=== PATIENT | male | born 1940 | race African-American/Black ===

== ENCOUNTER 2020-02-26 04:44 | Inpatient (IN) | payer SELFPAY ==
[~2020-02-26] VITALS: Ht 170.2 cm; Wt 74.8 kg
[2020-02-26 05:36] LABS: CHLORIDE 99 mEq/L (98-107)
[2020-02-26 05:41] LABS: BASOPHILS % 0.4 % (0.0-2.0); EOSINOPHILS % 0.1 % (0.0-5.0); HEMATOCRIT. 42.8 % (42.0-52.0); HEMOGLOBIN. 14.3 g/dL (14.0-18.0); LYMPHOCYTES % 7.9 % (20.0-50.0); MEAN PLATELET VOLUME 9.6 fl (7.4-10.4); NEUTROPHILS % 88.6 % (40.0-76.0); PLATELET 146 x1000/uL (130-400); RED BLOOD CELL COUNT 4.76 mill/uL (4.7-6.1); RED CELL DISTRIBUTION WIDTH 14.3 % (11.6-14.6)
[2020-02-26] MEDS ORDERED: SODIUM CHLORIDE 0.9% 1,000 ML IV ONE (06:33)
[2020-02-26] MEDS ORDERED: KETOROLAC 30MG/ML VIAL IV STA (06:33)
[2020-02-26] MEDS ORDERED: ONDANSETRON HCL 4MG/2ML INJ IV ONE (06:45)
[2020-02-26 07:33] LABS: CLARITY URINE CLEAR (CLEAR); COLOR URINE YELLOW (YELLOW); KETONES URINE 1+ (NEGATIVE); LEUKOCYTE ESTERASE URINE NEGATIVE (NEGATIVE); NITRITE URINE NEGATIVE (NEGATIVE); OCCULT BLOOD URINE NEGATIVE (NEGATIVE); PROTEIN URINE TRACE (NEGATIVE); SPECIFIC GRAVITY URINE 1.022 (1.005-1.030)
[2020-02-26] MEDS ORDERED: IPRATROPIUM/ALBUTEROL 0.5-3(2.5)MG/3ML NEB NEB PRN (10:00)
[2020-02-26] MEDS ORDERED: LORAZEPAM 2MG/ML CPJ IV PRN (10:00)
[2020-02-26] MEDS ORDERED: MORPHINE SULFATE 2 MG/ML CPJ (NOT FOR IM USE) IV PRN (10:00)
[2020-02-26] MEDS ORDERED: HYDROCODONE/ACETAMINOPHEN 5/325MG TABLET PO PRN (10:00)
[2020-02-26] MEDS ORDERED: NA PHOS,M-B/NA PHOS,DI-BA ENEMA 118ML PR PRN (10:00)
[2020-02-26] MEDS ORDERED: MAGNESIUM/ALUMINUM HYDROXIDE/SIMETHICONE 30ML UDC PO PRN (10:00)
[2020-02-26] MEDS ORDERED: GUAIFENESIN 200MG/10ML SUGAR FREE UDC PO PRN (10:00)
[2020-02-26] MEDS ORDERED: CLONIDINE 0.1MG TABLET PO PRN (10:00)
[2020-02-26 12:12] LABS: CHLORIDE 101 mEq/L (98-107)
[2020-02-26] MEDS: ENOXAPARIN 40MG/0.4ML SYR SUBCUT SCH (16:58)
[2020-02-26] MEDS: SODIUM CHLORIDE 0.45% 1,000 ML IV SCH (20:07)
[2020-02-26] MEDS: ONDANSETRON HCL 4MG/2ML INJ IV PRN (22:06)
[2020-02-26 22:10] VITALS: BP 129/73
[2020-02-26] MEDS ORDERED: PRAV20TA57 MT (23:28)
[2020-02-26] MEDS ORDERED: ASPI-1497 MT (23:28)
[2020-02-26] MEDS ORDERED: AMLO10TA80 MT (23:28)
[2020-02-26] MEDS ORDERED: BENA40TA9 MT (23:28)
[2020-02-26] MEDS ORDERED: DEXTROSE 50% WATER 50ML SYRINGE IV PRN (23:30)
[2020-02-27 04:00] VITALS: BP 123/74
[2020-02-27] MEDS: ONDANSETRON HCL 4MG/2ML INJ IV PRN (04:41)
[2020-02-27 06:53] LABS: BASOPHILS % 0.1 % (0.0-2.0); EOSINOPHILS % 0.1 % (0.0-5.0); HEMATOCRIT. 40.1 % (42.0-52.0); HEMOGLOBIN. 13.5 g/dL (14.0-18.0); LYMPHOCYTES % 14.4 % (20.0-50.0); MEAN CORPUSCULAR VOLUME 89.3 fL (80.0-94.0); MEAN PLATELET VOLUME 9.9 fl (7.4-10.4); MONOCYTES % 7.2 % (2.0-8.0); NEUTROPHILS % 78.2 % (40.0-76.0); PLATELET 146 x1000/uL (130-400); RED BLOOD CELL COUNT 4.49 mill/uL (4.7-6.1); RED CELL DISTRIBUTION WIDTH 14.2 % (11.6-14.6)
[2020-02-27] MEDS: BLOOD SUGAR DIAGNOSTIC STRIP TEST SCH ×4 (07:20→21:58)
[2020-02-27] MEDS: INSULIN LISPRO 100 UNITS/ML SUBCUT SCH ×4 (07:36→21:00)
[2020-02-27 07:59] LABS: CHLORIDE 103 mEq/L (98-107)
[2020-02-27 08:00] VITALS: BP 145/64
[2020-02-27 08:07] LABS: LDL CHOLESTEROL 81 mg/dL (5-100)
[2020-02-27 08:08] LABS: HDL CHOLESTEROL 70 mg/dL (40-59)
[2020-02-27] MEDS: SODIUM CHLORIDE 0.45% 1,000 ML IV SCH (09:29)
[2020-02-27] MEDS: ENOXAPARIN 40MG/0.4ML SYR SUBCUT SCH (09:29)
[2020-02-27 20:00] VITALS: BP 152/70
[2020-02-27] MEDS: ACETAMINOPHEN 325MG TABLET PO PRN (23:33)
[2020-02-28] VITALS: BP 146/86
[2020-02-28 04:00] VITALS: BP 158/78
[2020-02-28] MEDS: ONDANSETRON HCL 4MG/2ML INJ IV PRN ×2 (04:08→17:22)
[2020-02-28] MEDS: BLOOD SUGAR DIAGNOSTIC STRIP TEST SCH ×4 (06:37→20:39)
[2020-02-28] MEDS: INSULIN LISPRO 100 UNITS/ML SUBCUT SCH ×4 (07:50→20:49)
[2020-02-28 08:00] VITALS: BP 141/89
[2020-02-28] MEDS ORDERED: DIATR MEGLU/DIATRIZOATE SOLN 120ML ONE (08:16)
[2020-02-28] MEDS: ENOXAPARIN 40MG/0.4ML SYR SUBCUT SCH (10:00)
[2020-02-28 12:00] VITALS: BP 138/63
[2020-02-28 16:00] VITALS: BP 140/81
[2020-02-28] MEDS: DIPHENHYDRAMINE 50MG/ML VIAL IV PRN (17:11)
[2020-02-28] MEDS: SODIUM CHLORIDE 0.45% 1,000 ML IV SCH (17:18)
[2020-02-28 20:00] VITALS: BP 146/65
[2020-02-29] VITALS: BP 156/66
[2020-02-29] MEDS: ONDANSETRON HCL 4MG/2ML INJ IV PRN ×2 (01:49→23:13)
[2020-02-29 04:00] VITALS: BP_SYST 150; BP_SYST 156; BP_DIAS 57; BP_DIAS 66
[2020-02-29 07:10] LABS: BASOPHILS % 0.1 % (0.0-2.0); HEMATOCRIT. 40.4 % (42.0-52.0); HEMOGLOBIN. 13.4 g/dL (14.0-18.0); LYMPHOCYTES % 10.5 % (20.0-50.0); MEAN CORPUSCULAR HEMOGLOBIN 29.8 pg (28.0-32.0); MEAN PLATELET VOLUME 9.8 fl (7.4-10.4); MONOCYTES % 8.9 % (2.0-8.0); NEUTROPHILS % 80.5 % (40.0-76.0); PLATELET 140 x1000/uL (130-400); RED BLOOD CELL COUNT 4.49 mill/uL (4.7-6.1)
[2020-02-29] MEDS: BLOOD SUGAR DIAGNOSTIC STRIP TEST SCH ×4 (07:45→21:43)
[2020-02-29] MEDS: INSULIN LISPRO 100 UNITS/ML SUBCUT SCH ×4 (07:46→21:48)
[2020-02-29 07:57] LABS: CHLORIDE 105 mEq/L (98-107)
[2020-02-29 12:00] VITALS: BP 142/63
[2020-02-29] MEDS: ENOXAPARIN 40MG/0.4ML SYR SUBCUT SCH (14:44)
[2020-02-29] MEDS: SODIUM CHLORIDE 0.45% 1,000 ML IV SCH (14:45)
[2020-02-29 16:00] VITALS: BP 123/64
[2020-02-29 20:00] VITALS: BP 115/76
[2020-03-01] VITALS: BP 114/76
[2020-03-01 04:00] VITALS: BP 131/74
[2020-03-01] MEDS: ONDANSETRON HCL 4MG/2ML INJ IV PRN (05:54)
[2020-03-01] MEDS: BLOOD SUGAR DIAGNOSTIC STRIP TEST SCH ×4 (06:54→20:02)
[2020-03-01] MEDS: INSULIN LISPRO 100 UNITS/ML SUBCUT SCH ×4 (07:50→20:26)
[2020-03-01 08:00] VITALS: BP 146/81
[2020-03-01] MEDS: ENOXAPARIN 40MG/0.4ML SYR SUBCUT SCH ×2 (10:00→11:09)
[2020-03-01] MEDS: SODIUM CHLORIDE 0.45% 1,000 ML IV SCH (10:00)
[2020-03-01] MEDS ORDERED: BUPIVACAINE HCL 0.5% (5MG/ML) 50ML ONE (11:11)
[2020-03-01] MEDS ORDERED: NORMAL SALINE 0.9% 10 ML SYR ONE (11:14)
[2020-03-01] MEDS ORDERED: BACITRACIN 50,000 UNITS/VIAL ONE (11:14)
[2020-03-01] MEDS ORDERED: NEOSTIGMINE METHYLSULFATE 1MG/ML 10 ML VIAL ONE (11:38)
[2020-03-01] MEDS ORDERED: FENTANYL CITRATE/PF 50MCG/ML 2ML VIAL ONE (11:38)
[2020-03-01] MEDS ORDERED: GLYCOPYRROLATE 0.2 MG/ML 2ML VIAL ONE (11:39)
[2020-03-01] MEDS ORDERED: PROPOFOL 200MG/20ML VIAL IV ONE (11:39)
[2020-03-01] MEDS ORDERED: ROCURONIUM BROMIDE 10MG/ML VIAL 5ML IV ONE (11:39)
[2020-03-01] MEDS ORDERED: CEFAZOLIN SODIUM 1000MG/VIAL ONE (11:41)
[2020-03-01] MEDS ORDERED: LIDOCAINE HCL/PF 1% 10 MG/ML 5ML VIAL ONE (11:41)
[2020-03-01] MEDS ORDERED: SODIUM CHLORIDE 0.9% 10ML VIAL ONE (11:43)
[2020-03-01] MEDS ORDERED: EPHEDRINE SULFATE 50MG/ML VIAL ONE (11:59)
[2020-03-01] MEDS ORDERED: ONDANSETRON HCL 4MG/2ML INJ ONE (12:20)
[2020-03-01] MEDS ORDERED: METOCLOPRAMIDE HCL 10MG/2ML VIAL ONE (12:20)
[2020-03-01] MEDS ORDERED: ONDANSETRON HCL 4MG/2ML INJ IV PRN (13:00)
[2020-03-01] MEDS ORDERED: MORPHINE SULFATE 4 MG/ML CPJ (NOT FOR IM USE) IV PRN (13:00)
[2020-03-01] MEDS ORDERED: ACETAMINOPHEN 650MG SUPP PR PRN (13:00)
[2020-03-01] MEDS: FENTANYL CITRATE/PF 50MCG/ML 2ML VIAL IV PRN ×3 (13:17→15:12)
[2020-03-01] MEDS: BUPIVACAINE HCL 0.5% 125 ML in ON-Q PM012 DRUG DELIV DEVICE 1 EA IR SCH (13:41)
[2020-03-01 16:00] VITALS: BP 135/75
[2020-03-01 20:00] VITALS: BP 139/74
[2020-03-01] MEDS: FAMOTIDINE 20MG/2ML VIAL IV SCH (20:01)
[2020-03-02] VITALS: BP 153/79
[2020-03-02] MEDS: DEXT 5%/0.45% NACL KCL 20MEQ/L 1,000 ML IV SCH ×2 (04:27→14:40)
[2020-03-02] MEDS: MORPHINE SULFATE 2 MG/ML CPJ (NOT FOR IM USE) IV PRN ×3 (04:34→20:10)
[2020-03-02 05:35] VITALS: BP 126/73
[2020-03-02 06:18] LABS: HEMATOCRIT. 39.3 % (42.0-52.0); HEMOGLOBIN. 12.8 g/dL (14.0-18.0); MEAN CORPUSCULAR HEMOGLOBIN 29.9 pg (28.0-32.0); MEAN CORPUSCULAR VOLUME 91.7 fL (80.0-94.0); MEAN PLATELET VOLUME 8.8 fl (7.4-10.4); PLATELET 84 x1000/uL (130-400); RED BLOOD CELL COUNT 4.28 mill/uL (4.7-6.1); RED CELL DISTRIBUTION WIDTH 14.5 % (11.6-14.6)
[2020-03-02 06:23] LABS: CHLORIDE 115 mEq/L (98-107)
[2020-03-02] MEDS: BLOOD SUGAR DIAGNOSTIC STRIP TEST SCH ×4 (06:36→21:00)
[2020-03-02] MEDS: FAMOTIDINE 20MG/2ML VIAL IV SCH ×2 (09:00→20:44)
[2020-03-02] MEDS: INSULIN LISPRO 100 UNITS/ML SUBCUT SCH ×4 (10:27→21:00)
[2020-03-02] MEDS: BUPIVACAINE HCL 0.5% 125 ML in ON-Q PM012 DRUG DELIV DEVICE 1 EA IR SCH (14:00)
[2020-03-02 14:09] LABS: PLATELET ESTIMATE DECREASED
[2020-03-02 16:00] VITALS: BP 148/40
[2020-03-03] VITALS: BP 149/90
[2020-03-03] MEDS: DEXT 5%/0.45% NACL KCL 20MEQ/L 1,000 ML IV SCH ×3 (00:27→22:57)
[2020-03-03 04:00] VITALS: BP 132/68
[2020-03-03] MEDS: BLOOD SUGAR DIAGNOSTIC STRIP TEST SCH ×4 (07:20→21:14)
[2020-03-03] MEDS: MORPHINE SULFATE 2 MG/ML CPJ (NOT FOR IM USE) IV PRN (07:50)
[2020-03-03] MEDS: INSULIN LISPRO 100 UNITS/ML SUBCUT SCH ×4 (07:50→21:00)
[2020-03-03] MEDS: ENOXAPARIN 40MG/0.4ML SYR SUBCUT SCH (09:03)
[2020-03-03] MEDS: FAMOTIDINE 20MG/2ML VIAL IV SCH ×2 (09:03→21:19)
[2020-03-03 13:08] VITALS: BP 138/77
[2020-03-03] MEDS: BUPIVACAINE HCL 0.5% 125 ML in ON-Q PM012 DRUG DELIV DEVICE 1 EA IR SCH (14:00)
[2020-03-03 16:33] VITALS: BP 129/62
[2020-03-03 20:00] VITALS: BP 129/67
[2020-03-04] VITALS: BP 144/78
[2020-03-04] MEDS: MORPHINE SULFATE 2 MG/ML CPJ (NOT FOR IM USE) IV PRN ×2 (03:43→21:40)
[2020-03-04 04:00] VITALS: BP 142/78
[2020-03-04] MEDS: BLOOD SUGAR DIAGNOSTIC STRIP TEST SCH ×4 (07:03→21:00)
[2020-03-04 08:00] VITALS: BP 137/77
[2020-03-04] MEDS: FAMOTIDINE 20MG/2ML VIAL IV SCH ×2 (09:34→20:27)
[2020-03-04] MEDS: ENOXAPARIN 40MG/0.4ML SYR SUBCUT SCH (09:35)
[2020-03-04] MEDS: INSULIN LISPRO 100 UNITS/ML SUBCUT SCH ×4 (09:41→21:00)
[2020-03-04 12:00] VITALS: BP 142/80
[2020-03-04 16:00] VITALS: BP 135/84
[2020-03-04] MEDS: DEXT 5%/0.45% NACL KCL 20MEQ/L 1,000 ML IV SCH ×2 (16:30→22:26)
[2020-03-04 20:00] VITALS: BP 151/83
[2020-03-04] MEDS: DIPHENHYDRAMINE 50MG/ML VIAL IV PRN (20:27)
[2020-03-04] MEDS: ONDANSETRON HCL 4MG/2ML INJ IV PRN (21:40)
[2020-03-05] VITALS: BP 125/69
[2020-03-05 04:00] VITALS: BP 134/69
[2020-03-05] MEDS: INSULIN LISPRO 100 UNITS/ML SUBCUT SCH ×4 (06:27→21:00)
[2020-03-05] MEDS: BLOOD SUGAR DIAGNOSTIC STRIP TEST SCH ×4 (06:27→21:39)
[2020-03-05 07:38] LABS: BASOPHILS % 0.1 % (0.0-2.0); EOSINOPHILS % 0.6 % (0.0-5.0); HEMATOCRIT. 35.5 % (42.0-52.0); HEMOGLOBIN. 11.8 g/dL (14.0-18.0); LYMPHOCYTES % 8.9 % (20.0-50.0); MEAN CORPUSCULAR HEMOGLOBIN 29.9 pg (28.0-32.0); MEAN PLATELET VOLUME 10.4 fl (7.4-10.4); MONOCYTES % 6.8 % (2.0-8.0); NEUTROPHILS % 83.6 % (40.0-76.0); PLATELET 155 x1000/uL (130-400); RED BLOOD CELL COUNT 3.94 mill/uL (4.7-6.1); RED CELL DISTRIBUTION WIDTH 14.1 % (11.6-14.6)
[2020-03-05 07:41] LABS: CHLORIDE 111 mEq/L (98-107)
[2020-03-05 08:00] VITALS: BP 156/65
[2020-03-05] MEDS: FAMOTIDINE 20MG/2ML VIAL IV SCH ×2 (09:25→21:27)
[2020-03-05] MEDS: ENOXAPARIN 40MG/0.4ML SYR SUBCUT SCH (09:25)
[2020-03-05] MEDS: DEXT 5%/0.45% NACL KCL 20MEQ/L 1,000 ML IV SCH ×2 (12:44→21:39)
[2020-03-05 16:00] VITALS: BP 151/79
[2020-03-05 21:20] VITALS: BP 144/79
[2020-03-05] MEDS: ACETAMINOPHEN 325MG TABLET PO PRN (21:27)
[2020-03-05] MEDS: MORPHINE SULFATE 2 MG/ML CPJ (NOT FOR IM USE) IV PRN (21:33)
[2020-03-06] VITALS: BP 134/71
[2020-03-06 04:00] VITALS: BP 149/50
[2020-03-06] MEDS: BLOOD SUGAR DIAGNOSTIC STRIP TEST SCH ×4 (06:52→20:56)
[2020-03-06] MEDS: INSULIN LISPRO 100 UNITS/ML SUBCUT SCH ×4 (07:50→20:56)
[2020-03-06] MEDS: MORPHINE SULFATE 2 MG/ML CPJ (NOT FOR IM USE) IV PRN (07:59)
[2020-03-06] MEDS: DOCUSATE SODIUM 100MG CAPSULE PO PRN ×2 (07:59→17:14)
[2020-03-06 08:00] VITALS: BP 147/75
[2020-03-06] MEDS: DEXT 5%/0.45% NACL KCL 20MEQ/L 1,000 ML IV SCH (08:00)
[2020-03-06] MEDS: FAMOTIDINE 20MG/2ML VIAL IV SCH ×2 (08:04→20:57)
[2020-03-06 08:43] LABS: HEMOGLOBIN. 11.9 g/dL (14.0-18.0); MEAN CORPUSCULAR HEMOGLOBIN 29.8 pg (28.0-32.0); MEAN CORPUSCULAR VOLUME 90.3 fL (80.0-94.0); MEAN PLATELET VOLUME 9.7 fl (7.4-10.4); PLATELET 159 x1000/uL (130-400); RED BLOOD CELL COUNT 3.98 mill/uL (4.7-6.1); RED CELL DISTRIBUTION WIDTH 14.2 % (11.6-14.6)
[2020-03-06 08:52] LABS: CHLORIDE 112 mEq/L (98-107)
[2020-03-06 10:26] LABS: PLATELET ESTIMATE NORMAL
[2020-03-06] MEDS: ENOXAPARIN 40MG/0.4ML SYR SUBCUT SCH (11:25)
[2020-03-06 12:00] VITALS: BP 157/75
[2020-03-06] MEDS: ACETAMINOPHEN 325MG TABLET PO PRN (15:30)
[2020-03-06 16:00] VITALS: BP 122/68
[2020-03-06 20:00] VITALS: BP_SYST 124; BP_SYST 131; BP_DIAS 70; BP_DIAS 75
[2020-03-07] VITALS: BP 132/79
[2020-03-07 04:00] VITALS: BP 147/78
[2020-03-07] MEDS: DEXT 5%/0.45% NACL KCL 20MEQ/L 1,000 ML IV SCH ×2 (04:19→17:25)
[2020-03-07 05:22] LABS: BASOPHILS % 0.1 % (0.0-2.0); EOSINOPHILS % 0.4 % (0.0-5.0); HEMOGLOBIN. 12.6 g/dL (14.0-18.0); LYMPHOCYTES % 7.5 % (20.0-50.0); MEAN CORPUSCULAR HEMOGLOBIN 29.8 pg (28.0-32.0); MEAN CORPUSCULAR VOLUME 89.9 fL (80.0-94.0); MEAN PLATELET VOLUME 9.3 fl (7.4-10.4); MONOCYTES % 4.7 % (2.0-8.0); NEUTROPHILS % 87.3 % (40.0-76.0); PLATELET 160 x1000/uL (130-400); RED BLOOD CELL COUNT 4.23 mill/uL (4.7-6.1); RED CELL DISTRIBUTION WIDTH 13.9 % (11.6-14.6)
[2020-03-07 05:26] LABS: CHLORIDE 110 mEq/L (98-107)
[2020-03-07] MEDS: BLOOD SUGAR DIAGNOSTIC STRIP TEST SCH ×4 (07:25→21:15)
[2020-03-07] MEDS: INSULIN LISPRO 100 UNITS/ML SUBCUT SCH ×4 (07:26→21:00)
[2020-03-07 08:00] VITALS: BP 134/66
[2020-03-07] MEDS: FAMOTIDINE 20MG/2ML VIAL IV SCH ×2 (09:00→21:15)
[2020-03-07] MEDS: ENOXAPARIN 40MG/0.4ML SYR SUBCUT SCH (09:04)
[2020-03-07 12:00] VITALS: BP 139/69
[2020-03-07 16:00] VITALS: BP 137/67
[2020-03-07] MEDS: ACETAMINOPHEN 325MG TABLET PO PRN (18:01)
[2020-03-07 20:00] VITALS: BP 150/69
[2020-03-08] VITALS: BP 132/52
[2020-03-08] MEDS: DEXT 5%/0.45% NACL KCL 20MEQ/L 1,000 ML IV SCH ×2 (00:17→10:41)
[2020-03-08 04:00] VITALS: BP 139/57
[2020-03-08] MEDS: ACETAMINOPHEN 325MG TABLET PO PRN (06:04)
[2020-03-08 07:27] LABS: CHLORIDE 109 mEq/L (98-107)
[2020-03-08] MEDS: BLOOD SUGAR DIAGNOSTIC STRIP TEST SCH ×4 (07:27→21:00)
[2020-03-08] MEDS: INSULIN LISPRO 100 UNITS/ML SUBCUT SCH ×4 (07:50→21:00)
[2020-03-08 07:53] LABS: BASOPHILS % 0.3 % (0.0-2.0); EOSINOPHILS % 0.9 % (0.0-5.0); HEMATOCRIT. 33.1 % (42.0-52.0); LYMPHOCYTES % 10.8 % (20.0-50.0); MEAN CORPUSCULAR HEMOGLOBIN 29.6 pg (28.0-32.0); MEAN CORPUSCULAR VOLUME 88.9 fL (80.0-94.0); MEAN PLATELET VOLUME 10.2 fl (7.4-10.4); MONOCYTES % 5.7 % (2.0-8.0); NEUTROPHILS % 82.3 % (40.0-76.0); PLATELET 179 x1000/uL (130-400); RED BLOOD CELL COUNT 3.72 mill/uL (4.7-6.1); RED CELL DISTRIBUTION WIDTH 13.8 % (11.6-14.6)
[2020-03-08 08:00] VITALS: BP_SYST 158; BP_SYST 165; BP_DIAS 64; BP_DIAS 68
[2020-03-08] MEDS: FAMOTIDINE 20MG/2ML VIAL IV SCH ×2 (08:21→21:01)
[2020-03-08] MEDS: ENOXAPARIN 40MG/0.4ML SYR SUBCUT SCH (10:42)
[2020-03-08 12:00] VITALS: BP 155/78
[2020-03-08 16:00] VITALS: BP 136/76
[2020-03-08 20:00] VITALS: BP 149/60
[2020-03-08] MEDS: DIPHENHYDRAMINE 50MG/ML VIAL IV PRN (21:05)
[2020-03-09] VITALS: BP 145/67
[2020-03-09 04:00] VITALS: BP 137/77
[2020-03-09] MEDS: BLOOD SUGAR DIAGNOSTIC STRIP TEST SCH ×4 (06:59→21:12)
[2020-03-09] MEDS: INSULIN LISPRO 100 UNITS/ML SUBCUT SCH ×4 (06:59→21:00)
[2020-03-09 08:00] VITALS: BP_SYST 116; BP_SYST 140; BP_DIAS 60; BP_DIAS 72
[2020-03-09] MEDS: FAMOTIDINE 20MG/2ML VIAL IV SCH ×2 (09:27→21:13)
[2020-03-09] MEDS: ENOXAPARIN 40MG/0.4ML SYR SUBCUT SCH (09:27)
[2020-03-09] MEDS: DEXT 5%/0.45% NACL KCL 20MEQ/L 1,000 ML IV SCH ×2 (11:54→21:13)
[2020-03-09 12:00] VITALS: BP 139/61
[2020-03-09 16:00] VITALS: BP 125/92
[2020-03-09] MEDS: ACETAMINOPHEN 325MG TABLET PO PRN (19:37)
[2020-03-09 20:00] VITALS: BP 140/72
[2020-03-10] VITALS: BP 122/67
[2020-03-10] MEDS: DEXT 5%/0.45% NACL KCL 20MEQ/L 1,000 ML IV SCH ×3 (03:28→21:48)
[2020-03-10 04:00] VITALS: BP 138/60
[2020-03-10] MEDS: BLOOD SUGAR DIAGNOSTIC STRIP TEST SCH ×4 (06:45→20:47)
[2020-03-10] MEDS: INSULIN LISPRO 100 UNITS/ML SUBCUT SCH ×4 (06:54→20:47)
[2020-03-10 08:00] VITALS: BP 134/51
[2020-03-10] MEDS: FAMOTIDINE 20MG/2ML VIAL IV SCH ×2 (08:20→20:23)
[2020-03-10] MEDS: ACETAMINOPHEN 325MG TABLET PO PRN (08:21)
[2020-03-10] MEDS: ENOXAPARIN 40MG/0.4ML SYR SUBCUT SCH (10:05)
[2020-03-10 12:00] VITALS: BP 124/58
[2020-03-10 16:00] VITALS: BP 134/73
[2020-03-10 20:00] VITALS: BP 129/80
[2020-03-11] VITALS: BP 106/55
[2020-03-11 04:00] VITALS: BP 147/60
[2020-03-11] MEDS: BLOOD SUGAR DIAGNOSTIC STRIP TEST SCH (06:33)
[2020-03-11] MEDS: INSULIN LISPRO 100 UNITS/ML SUBCUT SCH (07:50)
[2020-03-11 08:00] VITALS: BP 156/48
[2020-03-11] MEDS: DEXT 5%/0.45% NACL KCL 20MEQ/L 1,000 ML IV SCH (08:23)
[2020-03-11] MEDS: FAMOTIDINE 20MG/2ML VIAL IV SCH (08:23)
[2020-03-11 09:03] VITALS: BP 108/61
[2020-03-15] MEDS ORDERED: CLOP75TA4 MT (14:50)
[2020-03-15] MEDS ORDERED: LEVO500T2 MT (14:50)
== END 2020-03-11 09:54 | disposition home or self-care (01) | DRG 230 ==
LOC: ER 04:44 → MICUSO 08:07 → 6EST 22:15
PROVIDERS: ADMIT Internal Medicine; ATTEND Internal Medicine
PROC: 0DT80ZZ Resection of Small Intestine, Open Approach (ICD-10-PCS; principal; 2020-03-01)
PROC: 0DN80ZZ Release Small Intestine, Open Approach (ICD-10-PCS; 2020-03-01)
DX: K56.50 Intestinal adhesions [bands], unspecified as to partial versus complete obstruction (principal); E46 Unspecified protein-calorie malnutrition; E11.9 Type 2 diabetes mellitus without complications; I10 Essential (primary) hypertension; M19.90 Unspecified osteoarthritis, unspecified site; E86.0 Dehydration; I25.10 Atherosclerotic heart disease of native coronary artery without angina pectoris; K56.7 Ileus, unspecified; Z68.25 Body mass index [BMI] 25.0-25.9, adult; Z79.899 Other long term (current) drug therapy; Z79.82 Long term (current) use of aspirin
CPT/HCPCS: 36415; 71045; 74018; 74176; 74250; 80048; 80053; 80061; 81003; 82962; 83036; 85025; 93005; 99285; J0690; J1200; J1650; J1815; J1885; J2060; J2270; J2405; J2704; J2710; J2765; J3010; J3490; J7030; Q9963

== ENCOUNTER 2020-04-27 15:54 | Inpatient (IN) | payer MEDICAID ==
[~2020-04-27] VITALS: Ht 175.3 cm; Wt 62.6 kg
[~2020-04-27 15:54] MED LIST: AMLO10TA80 MT; ASPI-1497 MT; BENA40TA9 MT; CLOP75TA4 MT; LEVO500T2 MT; PRAV20TA57 MT
[2020-04-27 17:51] LABS: BASOPHILS % 0.3 % (0.0-2.0); EOSINOPHILS % 0.3 % (0.0-5.0); LYMPHOCYTES % 24.1 % (20.0-50.0); MEAN CORPUSCULAR HEMOGLOBIN 29.9 pg (28.0-32.0); MEAN CORPUSCULAR VOLUME 92.4 fL (80.0-94.0); MEAN PLATELET VOLUME 8.8 fl (7.4-10.4); MONOCYTES % 5.4 % (2.0-8.0); NEUTROPHILS % 69.9 % (40.0-76.0); PLATELET 257 x1000/uL (130-400); RED BLOOD CELL COUNT 2.06 mill/uL (4.7-6.1); RED CELL DISTRIBUTION WIDTH 16.3 % (11.6-14.6)
[2020-04-27 17:52] LABS: CHLORIDE 105 mEq/L (98-107)
[2020-04-27 17:55] LABS: PROTHROMBIN TIME 10.8 sec (9.6-11.0)
[2020-04-27 18:08] LABS: HEMOGLOBIN. 6.2 g/dL (14.0-18.0)
[2020-04-27] MEDS ORDERED: SODIUM CHLORIDE 0.9% 1,000 ML IV ONE (19:00)
[2020-04-27 19:46] LABS: CLARITY URINE CLEAR (CLEAR); COLOR URINE YELLOW (YELLOW); KETONES URINE TRACE (NEGATIVE); LEUKOCYTE ESTERASE URINE NEGATIVE (NEGATIVE); NITRITE URINE NEGATIVE (NEGATIVE); OCCULT BLOOD URINE NEGATIVE (NEGATIVE); PROTEIN URINE NEGATIVE (NEGATIVE); SPECIFIC GRAVITY URINE 1.025 (1.005-1.030); UROBILINOGEN URINE 0.2 E.U./dL (0.2-1.0)
[2020-04-27] MEDS ORDERED: PANTOPRAZOLE 80 MG in SODIUM CHLORIDE 0.9% 100 ML IV SCH (20:00)
[2020-04-27] MEDS ORDERED: PANTOPRAZOLE SODIUM 40 MG/VIAL IV ONE (21:15)
[2020-04-27] MEDS ORDERED: ONDANSETRON HCL 4MG/2ML INJ IV PRN (22:00)
[2020-04-27] MEDS: DEXT 5%/0.45% NACL 1000ML 1,000 ML IV SCH (22:59)
[2020-04-27 23:35] VITALS: BP 125/53
[2020-04-28] VITALS (11 sets, daily range): BP systolic 95–131; BP diastolic 34–62
[2020-04-28] MEDS ORDERED: THIA50TA11 PO (02:55)
[2020-04-28] MEDS ORDERED: ENOX30DI4 SQ (02:55)
[2020-04-28] MEDS ORDERED: KEPP500 PO (02:55)
[2020-04-28] MEDS ORDERED: PROT40 PO (02:55)
[2020-04-28] MEDS ORDERED: DOCU250C69 PO (02:55)
[2020-04-28] MEDS ORDERED: MAGN400C PO (02:55)
[2020-04-28 03:40] LABS: BASOPHILS % 0.2 % (0.0-2.0); EOSINOPHILS % 0.5 % (0.0-5.0); LYMPHOCYTES % 22.2 % (20.0-50.0); MEAN CORPUSCULAR HEMOGLOBIN 31.4 pg (28.0-32.0); MEAN CORPUSCULAR VOLUME 91.7 fL (80.0-94.0); MEAN PLATELET VOLUME 7.9 fl (7.4-10.4); MONOCYTES % 5.8 % (2.0-8.0); NEUTROPHILS % 71.3 % (40.0-76.0); PLATELET 194 x1000/uL (130-400); RED BLOOD CELL COUNT 2.09 mill/uL (4.7-6.1); RED CELL DISTRIBUTION WIDTH 15.3 % (11.6-14.6)
[2020-04-28 03:45] LABS: HEMATOCRIT. 19.1 % (42.0-52.0); HEMOGLOBIN. 6.5 g/dL (14.0-18.0)
[2020-04-28 03:46] LABS: CHLORIDE 109 mEq/L (98-107)
[2020-04-28] MEDS: PANTOPRAZOLE SODIUM 40 MG/VIAL IV SCH ×3 (08:47→22:01)
[2020-04-28] MEDS: DEXT 5%/0.45% NACL 1000ML 1,000 ML IV SCH ×2 (15:02→22:10)
[2020-04-28 16:45] LABS: HEMATOCRIT 26.1 % (42.0-52.0); HEMOGLOBIN 8.9 g/dL (14.0-18.0); MEAN CORPUSCULAR HEMOGLOBIN 31.7 pg (28.0-32.0); MEAN CORPUSCULAR VOLUME 93.1 fL (80.0-94.0); PLATELET 131 x1000/uL (130-400); RED BLOOD CELL COUNT 2.81 mill/uL (4.7-6.1); RED CELL DISTRIBUTION WIDTH 15.5 % (11.6-14.6)
[2020-04-28] MEDS: ACETAMINOPHEN 325MG TABLET PO PRN (22:01)
[2020-04-28] MEDS ORDERED: IOHEXOL-300 100 ML BOTTLE ONE (23:50)
[2020-04-29] VITALS: BP 122/55
[2020-04-29 04:00] VITALS: BP 117/45
[2020-04-29 07:16] LABS: BASOPHILS % 0.7 % (0.0-2.0); HEMOGLOBIN. 8.5 g/dL (14.0-18.0); LYMPHOCYTES % 27.6 % (20.0-50.0); MEAN CORPUSCULAR HEMOGLOBIN 31.3 pg (28.0-32.0); MEAN CORPUSCULAR VOLUME 92.1 fL (80.0-94.0); MEAN PLATELET VOLUME 8.3 fl (7.4-10.4); MONOCYTES % 6.4 % (2.0-8.0); NEUTROPHILS % 63.3 % (40.0-76.0); PLATELET 206 x1000/uL (130-400); RED BLOOD CELL COUNT 2.72 mill/uL (4.7-6.1); RED CELL DISTRIBUTION WIDTH 15.6 % (11.6-14.6)
[2020-04-29 07:26] LABS: CHLORIDE 107 mEq/L (98-107)
[2020-04-29 08:00] VITALS: BP 117/61
[2020-04-29] MEDS: PANTOPRAZOLE SODIUM 40 MG/VIAL IV SCH ×2 (09:06→20:38)
[2020-04-29 12:00] VITALS: BP 130/51
[2020-04-29] MEDS: DEXT 5%/0.45% NACL 1000ML 1,000 ML IV SCH (15:38)
[2020-04-29 16:10] VITALS: BP 141/65
[2020-04-29 20:00] VITALS: BP 135/66
[2020-04-30] VITALS: BP 119/38
[2020-04-30] MEDS: DEXT 5%/0.45% NACL 1000ML 1,000 ML IV SCH ×2 (03:45→18:43)
[2020-04-30 04:00] VITALS: BP 134/38
[2020-04-30 06:18] LABS: BASOPHILS % 0.5 % (0.0-2.0); EOSINOPHILS % 1.6 % (0.0-5.0); HEMATOCRIT. 25.2 % (42.0-52.0); HEMOGLOBIN. 8.4 g/dL (14.0-18.0); LYMPHOCYTES % 23.6 % (20.0-50.0); MEAN PLATELET VOLUME 8.2 fl (7.4-10.4); NEUTROPHILS % 67.3 % (40.0-76.0); PLATELET 221 x1000/uL (130-400); RED BLOOD CELL COUNT 2.71 mill/uL (4.7-6.1); RED CELL DISTRIBUTION WIDTH 16.5 % (11.6-14.6)
[2020-04-30 07:05] LABS: CHLORIDE 109 mEq/L (98-107)
[2020-04-30 08:00] VITALS: BP 158/64
[2020-04-30] MEDS: PANTOPRAZOLE SODIUM 40 MG/VIAL IV SCH ×2 (09:05→21:16)
[2020-04-30 12:00] VITALS: BP 135/56
[2020-04-30] MEDS ORDERED: POTASSIUM CHLORIDE 20MEQ TABLET SR PO SCH (12:00)
[2020-04-30 16:00] VITALS: BP 139/55
[2020-04-30 20:00] VITALS: BP 137/57
[2020-05-01] VITALS: BP 120/50
[2020-05-01 04:00] VITALS: BP 141/51
[2020-05-01] MEDS: DEXT 5%/0.45% NACL 1000ML 1,000 ML IV SCH ×2 (06:17→18:29)
[2020-05-01 07:29] LABS: CHLORIDE 109 mEq/L (98-107)
[2020-05-01 07:39] LABS: BASOPHILS % 0.4 % (0.0-2.0); EOSINOPHILS % 1.5 % (0.0-5.0); HEMATOCRIT. 25.8 % (42.0-52.0); HEMOGLOBIN. 8.7 g/dL (14.0-18.0); LYMPHOCYTES % 21.8 % (20.0-50.0); MEAN CORPUSCULAR HEMOGLOBIN 31.2 pg (28.0-32.0); NEUTROPHILS % 70.3 % (40.0-76.0); PLATELET 217 x1000/uL (130-400); RED BLOOD CELL COUNT 2.78 mill/uL (4.7-6.1); RED CELL DISTRIBUTION WIDTH 17.6 % (11.6-14.6)
[2020-05-01 08:00] VITALS: BP 131/44
[2020-05-01] MEDS: PANTOPRAZOLE SODIUM 40 MG/VIAL IV SCH ×2 (09:08→20:46)
[2020-05-01 12:00] VITALS: BP 128/48
[2020-05-01 16:00] VITALS: BP 144/39
[2020-05-01] MEDS ORDERED: SORBITOL 70% SOLN 30ML PO NR ×2 (16:00→20:00)
[2020-05-01 20:00] VITALS: BP 129/75
[2020-05-02] VITALS: BP 147/67
[2020-05-02 04:00] VITALS: BP 133/47
[2020-05-02 08:00] VITALS: BP 144/52
[2020-05-02 08:33] LABS: BASOPHILS % 0.2 % (0.0-2.0); EOSINOPHILS % 0.9 % (0.0-5.0); HEMATOCRIT. 27.8 % (42.0-52.0); HEMOGLOBIN. 9.4 g/dL (14.0-18.0); LYMPHOCYTES % 26.2 % (20.0-50.0); MEAN CORPUSCULAR HEMOGLOBIN 31.6 pg (28.0-32.0); MEAN CORPUSCULAR VOLUME 93.7 fL (80.0-94.0); MEAN PLATELET VOLUME 7.6 fl (7.4-10.4); MONOCYTES % 6.6 % (2.0-8.0); NEUTROPHILS % 66.1 % (40.0-76.0); PLATELET 242 x1000/uL (130-400); RED BLOOD CELL COUNT 2.97 mill/uL (4.7-6.1); RED CELL DISTRIBUTION WIDTH 18.2 % (11.6-14.6)
[2020-05-02 08:40] LABS: CHLORIDE 114 mEq/L (98-107)
[2020-05-02] MEDS: PANTOPRAZOLE SODIUM 40 MG/VIAL IV SCH ×2 (09:00→22:30)
[2020-05-02] MEDS: DEXT 5%/0.45% NACL 1000ML 1,000 ML IV SCH (09:00)
[2020-05-02 12:00] VITALS: BP 139/73
[2020-05-02 16:00] VITALS: BP 125/62
[2020-05-02] MEDS ORDERED: SIMETHICONE 40 MG/0.6 ML 30ML ONE (16:07)
[2020-05-02] MEDS ORDERED: MIDAZOLAM HCL 5 MG/5 ML VIAL ONE (16:08)
[2020-05-02] MEDS ORDERED: FENTANYL CITRATE/PF 50MCG/ML 2ML VIAL ONE (16:08)
[2020-05-02] MEDS ORDERED: MIDAZOLAM HCL 5 MG/5 ML VIAL IV PRN (16:08)
[2020-05-02] MEDS ORDERED: MIDAZOLAM HCL 2 MG/2 ML VIAL IV PRN (16:22)
[2020-05-02] MEDS: ACETAMINOPHEN 325MG TABLET PO PRN (18:31)
[2020-05-02 20:00] VITALS: BP 131/47
[2020-05-02 21:27] LABS: HEMOGLOBIN 8.9 g/dL (14.0-18.0); MEAN CORPUSCULAR HEMOGLOBIN 31.7 pg (28.0-32.0); MEAN CORPUSCULAR VOLUME 96.3 fL (80.0-94.0); PLATELET 206 x1000/uL (130-400); RED CELL DISTRIBUTION WIDTH 18.7 % (11.6-14.6)
[2020-05-02 21:37] LABS: CHLORIDE 112 mEq/L (98-107)
[2020-05-02] MEDS: SUCRALFATE 1G TABLET PO SCH (22:30)
[2020-05-03] VITALS: BP 140/59
[2020-05-03] MEDS: DEXT 5%/0.45% NACL 1000ML 1,000 ML IV SCH (03:54)
[2020-05-03 04:00] VITALS: BP 134/51
[2020-05-03] MEDS: SUCRALFATE 1G TABLET PO SCH ×2 (06:23→12:59)
[2020-05-03 06:52] LABS: BASOPHILS % 0.5 % (0.0-2.0); EOSINOPHILS % 1.3 % (0.0-5.0); HEMATOCRIT. 25.9 % (42.0-52.0); HEMOGLOBIN. 8.7 g/dL (14.0-18.0); LYMPHOCYTES % 21.5 % (20.0-50.0); MEAN CORPUSCULAR HEMOGLOBIN 31.4 pg (28.0-32.0); MEAN PLATELET VOLUME 8.1 fl (7.4-10.4); MONOCYTES % 6.7 % (2.0-8.0); PLATELET 203 x1000/uL (130-400); RED BLOOD CELL COUNT 2.75 mill/uL (4.7-6.1); RED CELL DISTRIBUTION WIDTH 18.1 % (11.6-14.6)
[2020-05-03 07:07] LABS: CHLORIDE 112 mEq/L (98-107)
[2020-05-03 08:00] VITALS: BP 122/44
[2020-05-03] MEDS ORDERED: KCL 20MEQ/100ML PREMIX 100 ML IV NR (08:30)
[2020-05-03] MEDS: PANTOPRAZOLE SODIUM 40 MG/VIAL IV SCH (08:46)
[2020-05-03] MEDS ORDERED: KCL 20MEQ/100ML PREMIX 100 ML IV ONE (09:30)
[2020-05-03 12:00] VITALS: BP 127/42
[2020-05-03 15:04] VITALS: BP 127/42
== END 2020-05-03 16:10 | DRG 241 ==
LOC: ER 15:54 → 5WST 21:14 → EDBEDREQTM 21:20 → EDBEDREQ 21:20 → ENRESERV 22:05
PROVIDERS: ADMIT Internal Medicine; ATTEND Internal Medicine
PROC: 30233N1 Transfusion of Nonautologous Red Blood Cells into Peripheral Vein, Percutaneous Approach (ICD-10-PCS; principal; 2020-04-27)
PROC: 0DBN8ZZ Excision of Sigmoid Colon, Via Natural or Artificial Opening Endoscopic (ICD-10-PCS; 2020-05-02)
PROC: 0DB68ZX Excision of Stomach, Via Natural or Artificial Opening Endoscopic, Diagnostic (ICD-10-PCS; 2020-05-02)
PROC: 0DBP8ZZ Excision of Rectum, Via Natural or Artificial Opening Endoscopic (ICD-10-PCS; 2020-05-02)
DX: K29.61 Other gastritis with bleeding (principal); K26.4 Chronic or unspecified duodenal ulcer with hemorrhage; E43 Unspecified severe protein-calorie malnutrition; K57.31 Diverticulosis of large intestine without perforation or abscess with bleeding; E78.5 Hyperlipidemia, unspecified; I10 Essential (primary) hypertension; I25.10 Atherosclerotic heart disease of native coronary artery without angina pectoris; I44.1 Atrioventricular block, second degree; I73.9 Peripheral vascular disease, unspecified; K59.00 Constipation, unspecified; K76.0 Fatty (change of) liver, not elsewhere classified; M17.12 Unilateral primary osteoarthritis, left knee; N28.1 Cyst of kidney, acquired; I71.4 Abdominal aortic aneurysm, without rupture; E87.6 Hypokalemia; M17.0 Bilateral primary osteoarthritis of knee; D50.0 Iron deficiency anemia secondary to blood loss (chronic); K44.9 Diaphragmatic hernia without obstruction or gangrene; K63.5 Polyp of colon; L60.2 Onychogryphosis; Z20.828 Contact with and (suspected) exposure to other viral communicable diseases; S90.01XA Contusion of right ankle, initial encounter; N40.0 Benign prostatic hyperplasia without lower urinary tract symptoms; K08.109 Complete loss of teeth, unspecified cause, unspecified class; K64.8 Other hemorrhoids; Z79.899 Other long term (current) drug therapy; Z79.02 Long term (current) use of antithrombotics/antiplatelets; X58.XXXA Exposure to other specified factors, initial encounter; Y93.89 Activity, other specified; Y92.89 Other specified places as the place of occurrence of the external cause; Y99.8 Other external cause status; Z68.20 Body mass index [BMI] 20.0-20.9, adult
CPT/HCPCS: 36415; 71045; 74178; 76700; 80048; 80053; 81003; 82270; 83735; 84443; 84484; 85025; 85027; 86850; 86900; 86920; 87635; 88305; 88313; 93005; 93306; 93923; 96374; 97110; 97162; 97530; 99152; 99285; C9113; J2250; J3010; J3480; J7030; J7050; P9016; Q9967; G0500

== ENCOUNTER 2020-05-16 18:08 | Inpatient (IN) | payer MEDICAID ==
[~2020-05-16] VITALS: Ht 172.7 cm; Wt 61.7 kg
[~2020-05-16 18:08] MED LIST changes: +DOCU250C69 PO; +ENOX30DI4 SQ; +KEPP500 PO; +MAGN400C PO; +PROT40 PO; +THIA50TA11 PO
[2020-05-16 18:50] LABS: BASOPHILS % 1.2 % (0.0-2.0); EOSINOPHILS % 0.6 % (0.0-5.0); LYMPHOCYTES % 31.7 % (20.0-50.0); MEAN CORPUSCULAR HEMOGLOBIN 30.4 pg (28.0-32.0); MEAN CORPUSCULAR VOLUME 92.9 fL (80.0-94.0); MEAN PLATELET VOLUME 7.8 fl (7.4-10.4); MONOCYTES % 5.4 % (2.0-8.0); NEUTROPHILS % 61.1 % (40.0-76.0); PLATELET 338 x1000/uL (130-400); RED BLOOD CELL COUNT 1.98 mill/uL (4.7-6.1); RED CELL DISTRIBUTION WIDTH 17.1 % (11.6-14.6)
[2020-05-16 18:52] LABS: HEMATOCRIT. 18.4 % (42.0-52.0)
[2020-05-16 18:58] LABS: CHLORIDE 103 mEq/L (98-107)
[2020-05-16 18:59] LABS: PROTHROMBIN TIME 10.4 sec (9.6-11.0)
[2020-05-16] MEDS ORDERED: PANTOPRAZOLE 80 MG in SODIUM CHLORIDE 0.9% 100 ML IV SCH ×4 (19:00)
[2020-05-16] MEDS ORDERED: PANTOPRAZOLE SODIUM 40 MG/VIAL IV ONE (19:00)
[2020-05-16 19:10] LABS: CLARITY URINE CLOUDY (CLEAR); COLOR URINE YELLOW (YELLOW); KETONES URINE NEGATIVE (NEGATIVE); LEUKOCYTE ESTERASE URINE NEGATIVE (NEGATIVE); NITRITE URINE NEGATIVE (NEGATIVE); OCCULT BLOOD URINE NEGATIVE (NEGATIVE); PROTEIN URINE NEGATIVE (NEGATIVE); SPECIFIC GRAVITY URINE 1.016 (1.005-1.030)
[2020-05-16] MEDS ORDERED: CEFTRIAXONE 1 G PREMIX 50 ML IV SCH (20:15)
[2020-05-17] VITALS (21 sets, daily range): BP systolic 101–144; BP diastolic 32–79
[2020-05-17] MEDS ORDERED: ACETAMINOPHEN 325MG TABLET PO PRN (00:45)
[2020-05-17] MEDS ORDERED: OMEP20CA14 PO (01:41)
[2020-05-17] MEDS ORDERED: TOPUD PO (01:41)
[2020-05-17] MEDS ORDERED: HYDR-3281 PO (01:41)
[2020-05-17] MEDS ORDERED: CEFTRIAXONE 1,000 MG in DEXTROSE 5% WATER 50 ML IV SCH (02:00)
[2020-05-17] MEDS: PANTOPRAZOLE SODIUM 40 MG/VIAL IV SCH ×2 (06:38→18:37)
[2020-05-17] MEDS: DEXT 5%/0.45% NACL KCL 20MEQ/L 1,000 ML IV SCH ×2 (09:06→18:00)
[2020-05-17 09:27] LABS: BASOPHILS % 0.3 % (0.0-2.0); EOSINOPHILS % 0.8 % (0.0-5.0); HEMATOCRIT. 24.9 % (42.0-52.0); HEMOGLOBIN. 8.5 g/dL (14.0-18.0); LYMPHOCYTES % 29.9 % (20.0-50.0); MEAN CORPUSCULAR HEMOGLOBIN 30.8 pg (28.0-32.0); MEAN CORPUSCULAR VOLUME 90.8 fL (80.0-94.0); MEAN PLATELET VOLUME 7.5 fl (7.4-10.4); MONOCYTES % 4.2 % (2.0-8.0); NEUTROPHILS % 64.8 % (40.0-76.0); PLATELET 286 x1000/uL (130-400); RED BLOOD CELL COUNT 2.75 mill/uL (4.7-6.1); RED CELL DISTRIBUTION WIDTH 16.6 % (11.6-14.6)
[2020-05-17 09:36] LABS: CHLORIDE 106 mEq/L (98-107)
[2020-05-17] MEDS: SUCRALFATE 1G TABLET PO SCH ×3 (11:19→21:48)
[2020-05-17 17:46] LABS: HEMATOCRIT 21.4 % (42.0-52.0)
[2020-05-17 17:48] LABS: HEMOGLOBIN 6.8 g/dL (14.0-18.0)
[2020-05-17 17:57] LABS: TOTAL IRON BINDING CAPACITY 166 ug/dL (250-450)
[2020-05-17] MEDS: TAMSULOSIN HCL 0.4MG SR CAPSULE PO SCH (21:49)
[2020-05-18] VITALS (16 sets, daily range): BP systolic 107–141; BP diastolic 53–80
[2020-05-18 01:10] LABS: HEMOGLOBIN 8.9 g/dL (14.0-18.0)
[2020-05-18] MEDS: DEXT 5%/0.45% NACL KCL 20MEQ/L 1,000 ML IV SCH ×3 (04:25→17:44)
[2020-05-18] MEDS: PANTOPRAZOLE SODIUM 40 MG/VIAL IV SCH ×2 (06:06→17:44)
[2020-05-18] MEDS: SUCRALFATE 1G TABLET PO SCH ×4 (06:07→21:32)
[2020-05-18 06:27] LABS: BASOPHILS % 0.5 % (0.0-2.0); EOSINOPHILS % 1.6 % (0.0-5.0); HEMATOCRIT. 30.9 % (42.0-52.0); HEMOGLOBIN. 10.5 g/dL (14.0-18.0); LYMPHOCYTES % 17.4 % (20.0-50.0); MEAN CORPUSCULAR HEMOGLOBIN 30.2 pg (28.0-32.0); MEAN PLATELET VOLUME 7.7 fl (7.4-10.4); MONOCYTES % 5.5 % (2.0-8.0); PLATELET 279 x1000/uL (130-400); RED BLOOD CELL COUNT 3.47 mill/uL (4.7-6.1); RED CELL DISTRIBUTION WIDTH 17.4 % (11.6-14.6)
[2020-05-18 06:33] LABS: CHLORIDE 107 mEq/L (98-107)
[2020-05-18] MEDS ORDERED: FENTANYL CITRATE/PF 50MCG/ML 2ML VIAL ONE (11:04)
[2020-05-18] MEDS ORDERED: MIDAZOLAM HCL 5 MG/5 ML VIAL ONE (11:04)
[2020-05-18] MEDS ORDERED: MIDAZOLAM HCL 5 MG/5 ML VIAL IV PRN (11:04)
[2020-05-18] MEDS: TAMSULOSIN HCL 0.4MG SR CAPSULE PO SCH (21:33)
[2020-05-19] VITALS (10 sets, daily range): BP systolic 104–143; BP diastolic 42–76
[2020-05-19] MEDS: DEXT 5%/0.45% NACL KCL 20MEQ/L 1,000 ML IV SCH ×2 (02:05→09:42)
[2020-05-19] MEDS: SUCRALFATE 1G TABLET PO SCH ×3 (06:03→16:50)
[2020-05-19] MEDS: PANTOPRAZOLE SODIUM 40 MG/VIAL IV SCH (06:03)
[2020-05-19 07:07] LABS: BASOPHILS % 0.3 % (0.0-2.0); EOSINOPHILS % 1.9 % (0.0-5.0); HEMATOCRIT. 29.2 % (42.0-52.0); HEMOGLOBIN. 9.8 g/dL (14.0-18.0); LYMPHOCYTES % 18.6 % (20.0-50.0); MEAN CORPUSCULAR HEMOGLOBIN 30.2 pg (28.0-32.0); MEAN CORPUSCULAR VOLUME 89.9 fL (80.0-94.0); MEAN PLATELET VOLUME 7.7 fl (7.4-10.4); MONOCYTES % 6.4 % (2.0-8.0); NEUTROPHILS % 72.8 % (40.0-76.0); PLATELET 324 x1000/uL (130-400); RED BLOOD CELL COUNT 3.24 mill/uL (4.7-6.1); RED CELL DISTRIBUTION WIDTH 17.7 % (11.6-14.6)
[2020-05-19 07:22] LABS: CHLORIDE 108 mEq/L (98-107)
== END 2020-05-19 17:45 | DRG 663 ==
LOC: ER 18:12 → 3WST 20:22 → EDBEDREQTM 20:24 → EDBEDREQ 20:24 → ENRESERV 21:05
PROVIDERS: ADMIT Internal Medicine; ATTEND Internal Medicine
PROC: 30233N1 Transfusion of Nonautologous Red Blood Cells into Peripheral Vein, Percutaneous Approach (ICD-10-PCS; principal; 2020-05-16)
PROC: 0DJ68ZZ Inspection of Stomach, Via Natural or Artificial Opening Endoscopic (ICD-10-PCS; 2020-05-18)
DX: D62 Acute posthemorrhagic anemia (principal); K26.4 Chronic or unspecified duodenal ulcer with hemorrhage; K29.60 Other gastritis without bleeding; K44.9 Diaphragmatic hernia without obstruction or gangrene; K29.81 Duodenitis with bleeding; R00.1 Bradycardia, unspecified; I10 Essential (primary) hypertension; E46 Unspecified protein-calorie malnutrition; E78.5 Hyperlipidemia, unspecified; I25.10 Atherosclerotic heart disease of native coronary artery without angina pectoris; I44.1 Atrioventricular block, second degree; I71.2 Thoracic aortic aneurysm, without rupture; K57.30 Diverticulosis of large intestine without perforation or abscess without bleeding; M19.90 Unspecified osteoarthritis, unspecified site; N40.0 Benign prostatic hyperplasia without lower urinary tract symptoms; I73.9 Peripheral vascular disease, unspecified; K59.00 Constipation, unspecified; L89.516 Pressure-induced deep tissue damage of right ankle; K64.8 Other hemorrhoids; L89.156 Pressure-induced deep tissue damage of sacral region; I44.0 Atrioventricular block, first degree; Z79.82 Long term (current) use of aspirin; Z79.2 Long term (current) use of antibiotics; Z79.899 Other long term (current) drug therapy; Z68.20 Body mass index [BMI] 20.0-20.9, adult
CPT/HCPCS: 36415; 71045; 74176; 80048; 80053; 81003; 82040; 82270; 82728; 83540; 83550; 84134; 84484; 85014; 85018; 85025; 86850; 86900; 86920; 93005; 99291; C9113; J0696; J2250; J3010; J7050; J7060; P9016

== ENCOUNTER 2022-03-18 17:35 | Inpatient (IN) | payer MEDICAID ==
[~2022-03-18] VITALS: Ht 175.3 cm; Wt 78.0 kg
[~2022-03-18 17:35] MED LIST changes: -BENA40TA9 MT; +BENA40TA91 MT; +CLOP-31 MT; -CLOP75TA4 MT; +HYDR-4346 PO; +OMEP20CA14 PO; -THIA50TA11 PO; +THIA50TA12 PO; +TOPUD PO
[2022-03-18] MEDS ORDERED: FAMOTIDINE 20MG/2ML VIAL IV STA (18:15)
[2022-03-18] MEDS ORDERED: SODIUM CHLORIDE 0.9% 500 ML IV ONE (18:15)
[2022-03-18 18:27] LABS: BASOPHILS % 0.3 % (0.0-2.0); EOSINOPHILS % 0.1 % (0.0-5.0); HEMATOCRIT. 42.5 % (42.0-52.0); LYMPHOCYTES % 9.9 % (20.0-50.0); MEAN CORPUSCULAR HEMOGLOBIN 28.6 pg (28.0-32.0); MEAN CORPUSCULAR VOLUME 86.9 fL (80.0-94.0); MONOCYTES % 2.7 % (2.0-8.0); PLATELET 159 x1000/uL (130-400); RED BLOOD CELL COUNT 4.88 mill/uL (4.7-6.1); RED CELL DISTRIBUTION WIDTH 15.2 % (11.6-14.6)
[2022-03-18] MEDS ORDERED: ONDANSETRON HCL 4MG/2ML INJ IV ONE (18:30)
[2022-03-18 18:37] LABS: CHLORIDE 103 mEq/L (98-107)
[2022-03-18] MEDS ORDERED: FAMOTIDINE 20MG/2ML VIAL IV NR (20:17)
[2022-03-18] MEDS ORDERED: ONDANSETRON HCL 4MG/2ML INJ IV NR (20:17)
[2022-03-18 21:15] LABS: CLARITY URINE CLEAR (CLEAR); COLOR URINE YELLOW (YELLOW); KETONES URINE TRACE (NEGATIVE); LEUKOCYTE ESTERASE URINE 1+ (NEGATIVE); NITRITE URINE NEGATIVE (NEGATIVE); OCCULT BLOOD URINE NEGATIVE (NEGATIVE); PROTEIN URINE NEGATIVE (NEGATIVE); SPECIFIC GRAVITY URINE 1.051 (1.005-1.030); UROBILINOGEN URINE 0.2 E.U./dL (0.2-1.0)
[2022-03-18 22:00] VITALS: BP 141/72
[2022-03-18] MEDS ORDERED: IOHEXOL-300 100 ML BOTTLE ONE (22:01)
[2022-03-19] VITALS: BP 130/52
[2022-03-19] MEDS ORDERED: ACETAMINOPHEN 325MG TABLET PO SCH (00:30)
[2022-03-19] MEDS ORDERED: CLONIDINE 0.1MG TABLET PO PRN (00:45)
[2022-03-19] MEDS ORDERED: ONDANSETRON HCL 4MG/2ML INJ IV PRN (00:45)
[2022-03-19] MEDS ORDERED: HYDRALAZINE 20MG/ML VIAL IV PRN (00:45)
[2022-03-19 04:00] VITALS: BP 122/57
[2022-03-19 06:36] LABS: BASOPHILS % 0.4 % (0.0-2.0); EOSINOPHILS % 0.6 % (0.0-5.0); HEMATOCRIT. 38.5 % (42.0-52.0); HEMOGLOBIN. 12.7 g/dL (14.0-18.0); LYMPHOCYTES % 22.6 % (20.0-50.0); MEAN CORPUSCULAR HEMOGLOBIN 28.7 pg (28.0-32.0); MEAN CORPUSCULAR VOLUME 87.1 fL (80.0-94.0); MONOCYTES % 7.1 % (2.0-8.0); NEUTROPHILS % 69.3 % (40.0-76.0); RED BLOOD CELL COUNT 4.42 mill/uL (4.7-6.1); RED CELL DISTRIBUTION WIDTH 15.3 % (11.6-14.6)
[2022-03-19 06:43] LABS: CHLORIDE 108 mEq/L (98-107)
[2022-03-19 07:11] LABS: HDL CHOLESTEROL 50 mg/dL (40-59); LDL CHOLESTEROL 73 mg/dL (5-100)
[2022-03-19 08:55] LABS: PLATELET 124 x1000/uL (130-400)
[2022-03-19] MEDS: CLOPIDOGREL 75MG TABLET PO SCH (09:39)
[2022-03-19] MEDS: ASPIRIN 81MG EC TABLET PO SCH (09:39)
[2022-03-19] MEDS: AMLODIPINE 10MG TABLET PO SCH (09:39)
[2022-03-19] MEDS: DOCUSATE SODIUM 250MG CAPSULE PO SCH (09:39)
[2022-03-19] MEDS: THIAMINE HCL 100MG TABLET PO SCH (09:39)
[2022-03-19] MEDS: MAGNESIUM OXIDE 400MG TABLET PO SCH (09:39)
[2022-03-19] MEDS: PANTOPRAZOLE 40MG DR TABLET PO SCH (09:39)
[2022-03-19] MEDS: BENAZEPRIL 10MG TABLET PO SCH (09:40)
[2022-03-19 12:00] VITALS: BP 118/52
[2022-03-19] MEDS ORDERED: SORBITOL 70% SOLN 30ML PO NR (12:15)
[2022-03-19] MEDS ORDERED: ZOLPIDEM TARTRATE 5MG TABLET PO ONE (12:45)
[2022-03-19] MEDS ORDERED: ZOLPIDEM TARTRATE 5MG TABLET PO PRN (12:45)
[2022-03-19 16:00] VITALS: BP 135/64
[2022-03-19 20:00] VITALS: BP 128/64
[2022-03-19] MEDS: ATORVASTATIN CALCIUM 10MG TABLET PO SCH (22:24)
[2022-03-19] MEDS: TEMAZEPAM 15MG CAPSULE PO PRN (22:27)
[2022-03-19 23:16] LABS: CLARITY URINE CLEAR (CLEAR); COLOR URINE YELLOW (YELLOW); KETONES URINE NEGATIVE (NEGATIVE); LEUKOCYTE ESTERASE URINE 2+ (NEGATIVE); NITRITE URINE NEGATIVE (NEGATIVE); OCCULT BLOOD URINE NEGATIVE (NEGATIVE); PROTEIN URINE TRACE (NEGATIVE); SPECIFIC GRAVITY URINE 1.019 (1.005-1.030); UROBILINOGEN URINE 0.2 E.U./dL (0.2-1.0)
[2022-03-20] VITALS: BP 120/79
[2022-03-20 04:00] VITALS: BP 140/82
[2022-03-20] MEDS ORDERED: CEFTRIAXONE 1 G PREMIX 50 ML IV SCH (08:00)
[2022-03-20] MEDS: AMLODIPINE 10MG TABLET PO SCH (09:00)
[2022-03-20] MEDS: BENAZEPRIL 10MG TABLET PO SCH (09:00)
[2022-03-20] MEDS: DOCUSATE SODIUM 250MG CAPSULE PO SCH (09:21)
[2022-03-20] MEDS: CLOPIDOGREL 75MG TABLET PO SCH (09:22)
[2022-03-20] MEDS: THIAMINE HCL 100MG TABLET PO SCH (09:22)
[2022-03-20] MEDS: CEFTRIAXONE 1,000 MG in DEXTROSE 5% WATER 50 ML IV SCH (09:22)
[2022-03-20] MEDS: ASPIRIN 81MG EC TABLET PO SCH (09:22)
[2022-03-20] MEDS: MAGNESIUM OXIDE 400MG TABLET PO SCH (09:22)
[2022-03-20] MEDS: PANTOPRAZOLE 40MG DR TABLET PO SCH (09:22)
[2022-03-20] MEDS ORDERED: LACTULOSE 20G/30ML UDC PO SCH (11:45)
[2022-03-20 12:00] VITALS: BP 126/79
[2022-03-20 16:00] VITALS: BP 127/68
[2022-03-20 20:00] VITALS: BP 135/79
[2022-03-20] MEDS: TEMAZEPAM 15MG CAPSULE PO PRN (21:07)
[2022-03-20] MEDS: ATORVASTATIN CALCIUM 10MG TABLET PO SCH (21:07)
[2022-03-21] VITALS (7 sets, daily range): BP systolic 106–126; BP diastolic 61–85
[2022-03-21] MEDS ORDERED: FAMOTIDINE 20MG TABLET PO SCH (09:00)
[2022-03-21] MEDS: CEFTRIAXONE 1,000 MG in DEXTROSE 5% WATER 50 ML IV SCH (09:42)
[2022-03-21] MEDS: CLOPIDOGREL 75MG TABLET PO SCH (09:42)
[2022-03-21] MEDS: BENAZEPRIL 10MG TABLET PO SCH (09:42)
[2022-03-21] MEDS: ASPIRIN 81MG EC TABLET PO SCH (09:43)
[2022-03-21] MEDS: DOCUSATE SODIUM 250MG CAPSULE PO SCH (09:43)
[2022-03-21] MEDS: MAGNESIUM OXIDE 400MG TABLET PO SCH (09:43)
[2022-03-21] MEDS: THIAMINE HCL 100MG TABLET PO SCH (09:43)
[2022-03-21] MEDS: AMLODIPINE 10MG TABLET PO SCH (09:43)
[2022-03-21] MEDS ORDERED: MECLIZINE 25MG TABLET PO PRN (10:15)
== END 2022-03-21 18:00 | DRG 247 ==
LOC: ER 17:35 → 7WST 19:56 → EDBEDREQ 20:35 → EDBEDREQTM 20:35 → ENRESERV 21:18
PROVIDERS: ADMIT Internal Medicine; ATTEND Internal Medicine
DX: K56.41 Fecal impaction (principal); I71.2 Thoracic aortic aneurysm, without rupture; K56.7 Ileus, unspecified; E78.5 Hyperlipidemia, unspecified; I10 Essential (primary) hypertension; I71.4 Abdominal aortic aneurysm, without rupture; N21.0 Calculus in bladder; N40.0 Benign prostatic hyperplasia without lower urinary tract symptoms; K40.20 Bilateral inguinal hernia, without obstruction or gangrene, not specified as recurrent; Z20.822 Contact with and (suspected) exposure to COVID-19; M19.90 Unspecified osteoarthritis, unspecified site; Z79.2 Long term (current) use of antibiotics; Z79.82 Long term (current) use of aspirin; Z79.899 Other long term (current) drug therapy
CPT/HCPCS: 36415; 71045; 74018; 74177; 80048; 80053; 80061; 81003; 83880; 84443; 84484; 85025; 87426; 93005; 99285; J0696; J2405; J3490; J7040; J7060; J8597; Q9967

== ENCOUNTER 2022-08-15 04:39 | Emergency (ER) | payer MEDICAID ==
[~2022-08-15] VITALS: Ht 172.7 cm; Wt 82.0 kg
[2022-08-15] MEDS ORDERED: DIATR MEGLU/DIATRIZOATE SOLN 30ML PO ONE (05:45)
[2022-08-15 05:47] LABS: BASOPHILS % 0.3 % (0.0-2.0); EOSINOPHILS % 1.6 % (0.0-5.0); HEMATOCRIT. 42.8 % (42.0-52.0); HEMOGLOBIN. 14.2 g/dL (14.0-18.0); LYMPHOCYTES % 27.9 % (20.0-50.0); MEAN CORPUSCULAR HEMOGLOBIN 28.8 pg (28.0-32.0); MEAN CORPUSCULAR VOLUME 86.9 fL (80.0-94.0); MEAN PLATELET VOLUME 8.7 fl (7.4-10.4); MONOCYTES % 5.1 % (2.0-8.0); NEUTROPHILS % 65.1 % (40.0-76.0); PLATELET 147 x1000/uL (130-400); RED BLOOD CELL COUNT 4.92 mill/uL (4.7-6.1); RED CELL DISTRIBUTION WIDTH 15.3 % (11.6-14.6)
[2022-08-15 05:55] LABS: CHLORIDE 106 mEq/L (98-107)
[2022-08-15] MEDS: NA PHOS,M-B/NA PHOS,DI-BA ENEMA 118ML PR NR ×3 (08:45→09:54)
[2022-08-15 08:46] LABS: CLARITY URINE CLEAR (CLEAR); COLOR URINE YELLOW (YELLOW); KETONES URINE NEGATIVE (NEGATIVE); LEUKOCYTE ESTERASE URINE 1+ (NEGATIVE); NITRITE URINE NEGATIVE (NEGATIVE); OCCULT BLOOD URINE TRACE (NEGATIVE); PROTEIN URINE NEGATIVE (NEGATIVE); SPECIFIC GRAVITY URINE 1.004 (1.005-1.030); UROBILINOGEN URINE 0.2 E.U./dL (0.2-1.0)
[2022-08-15 19:07] VITALS: BP 146/7
== END 2022-08-15 20:18 | disposition home or self-care (01) ==
LOC: ER 04:39
DX: K56.41 Fecal impaction (principal); I10 Essential (primary) hypertension; Z79.899 Other long term (current) drug therapy; Z79.82 Long term (current) use of aspirin; Z98.890 Other specified postprocedural states
CPT/HCPCS: 36415; 74176; 80053; 81003; 85025; 99284

== ENCOUNTER 2023-03-22 04:58 | Emergency (ER) | payer MEDICAID ==
[~2023-03-22] VITALS: Ht 185.4 cm; Wt 82.0 kg
[2023-03-22 05:02] VITALS: O2SAT 16
[2023-03-22] MEDS ORDERED: MORPHINE SULFATE 4 MG/ML CPJ (NOT FOR IM USE) IV STA (05:39)
[2023-03-22] MEDS ORDERED: ONDANSETRON HCL 4MG/2ML INJ IV STA (05:39)
[2023-03-22] MEDS ORDERED: SODIUM CHLORIDE 0.9% 1,000 ML IV ONE (05:45)
[2023-03-22 06:11] LABS: BASOPHILS % 0.3 % (0.0-2.0); EOSINOPHILS % 0.7 % (0.0-5.0); HEMATOCRIT. 43.1 % (42.0-52.0); HEMOGLOBIN. 14.3 g/dL (14.0-18.0); MEAN CORPUSCULAR HEMOGLOBIN 29.3 pg (28.0-32.0); MEAN CORPUSCULAR VOLUME 88.5 fL (80.0-94.0); MEAN PLATELET VOLUME 8.8 fl (7.4-10.4); MONOCYTES % 4.1 % (2.0-8.0); NEUTROPHILS % 60.9 % (40.0-76.0); PLATELET 116 x1000/uL (130-400); RED BLOOD CELL COUNT 4.87 mill/uL (4.7-6.1); RED CELL DISTRIBUTION WIDTH 15.9 % (11.6-14.6)
[2023-03-22 06:19] LABS: CHLORIDE 109 mEq/L (98-107)
[2023-03-22] MEDS ORDERED: IOHEXOL-350 100 ML BOTTLE ONE ×2 (09:59→12:41)
[2023-03-22] MEDS ORDERED: POLY17PO3 MT (10:49)
[2023-03-22] MEDS ORDERED: SENN-257 MT (10:49)
[2023-03-22 11:40] LABS: CLARITY URINE CLEAR (CLEAR); COLOR URINE YELLOW (YELLOW); KETONES URINE 1+ (NEGATIVE); LEUKOCYTE ESTERASE URINE 2+ (NEGATIVE); NITRITE URINE NEGATIVE (NEGATIVE); OCCULT BLOOD URINE TRACE (NEGATIVE); PROTEIN URINE NEGATIVE (NEGATIVE); SPECIFIC GRAVITY URINE 1.058 (1.005-1.030); UROBILINOGEN URINE 0.2 E.U./dL (0.2-1.0)
[2023-03-22 11:49] VITALS: BP 103/58; PULSE 59; RESP 12; TEMP 98.5
== END 2023-03-22 16:10 | disposition home or self-care (01) ==
LOC: ER 05:05
DX: K59.00 Constipation, unspecified (principal); I10 Essential (primary) hypertension
CPT/HCPCS: 36415; 71275; 74174; 80053; 81003; 83605; 83690; 85025; 87077; 87086; 87186; 96361; 96374; 96375; 99285; J2270; J2405; J7030; Q9967; Z7610

== ENCOUNTER 2023-12-15 09:48 | Emergency (ER) | payer MEDICAID ==
[~2023-12-15] VITALS: Ht 172.7 cm; Wt 70.0 kg
[~2023-12-15 09:48] MED LIST changes: +CIPR-264 MT; -ENOX30DI4 SQ; -KEPP500 PO; -LEVO500T2 MT; -OMEP20CA14 PO; +PANT40TA51 PO; +POLY17PO3 MT; -PROT40 PO; +SENN-257 MT; +TEMA7.5C6 PO
[2023-12-15 09:49] VITALS: O2SAT 96
[2023-12-15 10:41] LABS: BASOPHILS % 0.4 % (0.0-2.0); EOSINOPHILS % 0.9 % (0.0-5.0); HEMATOCRIT. 42.5 % (42.0-52.0); HEMOGLOBIN. 13.9 g/dL (14.0-18.0); LYMPHOCYTES % 41.9 % (20.0-50.0); MEAN CORPUSCULAR HEMOGLOBIN 29.2 pg (28.0-32.0); MEAN CORPUSCULAR HGB CONC 32.7 g/dL (31.0-37.0); MEAN CORPUSCULAR VOLUME 89.2 fL (80.0-94.0); MEAN PLATELET VOLUME 9.1 fl (7.4-10.4); MONOCYTES % 6.8 % (2.0-8.0); PLATELET 116 x1000/uL (130-400); RED BLOOD CELL COUNT 4.76 mill/uL (4.7-6.1); RED CELL DISTRIBUTION WIDTH 17.1 % (11.6-14.6); WHITE BLOOD COUNT 7.6 x1000/uL (4.5-11.0)
[2023-12-15 10:56] LABS: ALANINE AMINOTRANSFERASE 7 IU/L (10-49); ALBUMIN 4.4 g/dL (3.2-4.8); ASPARTATE AMINOTRANSFERASE 17 IU/L (<34); BILIRUBIN TOTAL 1.2 mg/dL (0.1-1.0); CALCIUM 9.2 mg/dL (8.7-10.4); CARBON DIOXIDE 26 mEq/L (21-32); CHLORIDE 104 mEq/L (98-107); CREATININE 0.7 mg/dL (0.6-1.3); GLUCOSE 107 mg/dL (70-105); SODIUM 139 mEq/L (136-145); UREA NITROGEN BLOOD 16 mg/dL (9-23)
[2023-12-15 11:06] LABS: CLARITY URINE CLOUDY (CLEAR); COLOR URINE YELLOW (YELLOW); GLUCOSE URINE NEGATIVE (NEGATIVE); KETONES URINE NEGATIVE (NEGATIVE); LEUKOCYTE ESTERASE URINE 3+ (NEGATIVE); NITRITE URINE NEGATIVE (NEGATIVE); OCCULT BLOOD URINE 3+ (NEGATIVE); PH URINE 8.5 (4.5-8.0); PROTEIN URINE 1+ (NEGATIVE); UROBILINOGEN URINE 0.2 E.U./dL (0.2-1.0)
[2023-12-15 11:38] LABS: SQUAMOUS EPITHELIAL CELL URINE NONE SEEN /lpf (RARE/1+)
[2023-12-15 11:39] LABS: BACTERIA URINE 4+; WBC URINE 25-50 /hpf (0-2)
[2023-12-15] MEDS ORDERED: CEPH500T MT (12:29)
[2023-12-15] MEDS: CEFTRIAXONE 2GM/50ML 50 ML IV ONE (13:09)
[2023-12-15] MEDS: ACETAMINOPHEN 325MG TABLET PO NR (14:44)
[2023-12-15 14:50] VITALS: BP 111/70; PULSE 85; RESP 15; TEMP 98.4
== END 2023-12-15 14:51 | disposition home or self-care (01) ==
LOC: ER 10:04
DX: N39.0 Urinary tract infection, site not specified (principal); R33.9 Retention of urine, unspecified; I10 Essential (primary) hypertension; Z79.899 Other long term (current) drug therapy; Z79.82 Long term (current) use of aspirin
CPT/HCPCS: 80053; 81003; 85025; 87086; 87186; 87077; 36415; 51702; 96365; 99285; J0696; Z7610 ×3

== ENCOUNTER 2024-04-11 09:36 | Emergency (ER) | payer MEDICAID ==
[~2024-04-11] VITALS: Ht 175.3 cm; Wt 64.0 kg
[~2024-04-11 09:36] MED LIST changes: +CEPH500T MT
[2024-04-11 09:45] VITALS: BP 168/101; PULSE 107; RESP 16; TEMP 97.2; O2SAT 99
[2024-04-11 10:36] LABS: BASOPHILS % 0.5 % (0.0-2.0); EOSINOPHILS % 1.5 % (0.0-5.0); HEMATOCRIT. 40.3 % (42.0-52.0); HEMOGLOBIN. 13.5 g/dL (14.0-18.0); LYMPHOCYTES % 29.2 % (20.0-50.0); MEAN CORPUSCULAR HEMOGLOBIN 30.4 pg (28.0-32.0); MEAN CORPUSCULAR HGB CONC 33.5 g/dL (31.0-37.0); MEAN CORPUSCULAR VOLUME 90.7 fL (80.0-94.0); MEAN PLATELET VOLUME 9.4 fl (7.4-10.4); MONOCYTES % 6.9 % (2.0-8.0); NEUTROPHILS % 61.9 % (40.0-76.0); PLATELET 119 x1000/uL (130-400); RED BLOOD CELL COUNT 4.44 mill/uL (4.7-6.1); RED CELL DISTRIBUTION WIDTH 15.1 % (11.6-14.6); WHITE BLOOD COUNT 4.4 x1000/uL (4.5-11.0)
[2024-04-11 11:00] LABS: CHLORIDE 106 mEq/L (98-107); POTASSIUM 3.6 mEq/L (3.5-5.1); SODIUM 140 mEq/L (136-145)
[2024-04-11 11:01] LABS: CALCIUM 9.4 mg/dL (8.7-10.4); CARBON DIOXIDE 27 mEq/L (21-32)
[2024-04-11 11:06] LABS: CREATININE 0.7 mg/dL (0.6-1.3); GLUCOSE 121 mg/dL (70-105); UREA NITROGEN BLOOD 11 mg/dL (9-23)
[2024-04-11 11:19] LABS: CLARITY URINE CLEAR (CLEAR); COLOR URINE YELLOW (YELLOW); GLUCOSE URINE NEGATIVE (NEGATIVE); KETONES URINE NEGATIVE (NEGATIVE); LEUKOCYTE ESTERASE URINE 3+ (NEGATIVE); NITRITE URINE POSITIVE (NEGATIVE); OCCULT BLOOD URINE 1+ (NEGATIVE); PROTEIN URINE NEGATIVE (NEGATIVE); SPECIFIC GRAVITY URINE 1.006 (1.005-1.030); UROBILINOGEN URINE 0.2 E.U./dL (0.2-1.0)
[2024-04-11 11:28] LABS: BACTERIA URINE 1+; RBC URINE 0-2 /hpf (0-2); SQUAMOUS EPITHELIAL CELL URINE RARE /lpf (RARE/1+); YEAST URINE NONE SEEN
[2024-04-11] MEDS ORDERED: LEVO-65 MT (14:34)
[2024-04-11] MEDS ORDERED: IBUP-2028 MT (14:34)
== END 2024-04-11 19:36 ==
LOC: ER 09:36
DX: N39.0 Urinary tract infection, site not specified (principal)
CPT/HCPCS: 80048; 81003; 85025; 87086; 87186; 87077; 36415; 74176; 99284; Z7610